=== PATIENT | male | born 1960 | race Caucasian/White ===

== ENCOUNTER 2016-11-16 12:53 | Emergency (ER) | payer MEDICARE ==
[2017-02-10] MEDS ORDERED: PERCOCET 10-321 EACH PO (17:38)
[2017-02-10] MEDS ORDERED: B-1100 MG PO (20:15)
[2017-02-10] MEDS ORDERED: FOLIC ACID 1 MG1 MG PO (20:15)
[2017-02-10] MEDS ORDERED: PEPCID20 MG PO (20:16)
== END 2016-11-16 13:40 | disposition home or self-care (01) ==
LOC: ER1 12:53
DX: S30.863A Insect bite (nonvenomous) of scrotum and testes, initial encounter (principal); F17.210 Nicotine dependence, cigarettes, uncomplicated; W57.XXXA Bitten or stung by nonvenomous insect and other nonvenomous arthropods, initial encounter
CPT/HCPCS: 99281

== ENCOUNTER → 2020-12-01 | Outpatient (CLI) | payer MEDICARE ==
[~2020-12-01] MED LIST: B-1100 MG PO; FOLIC ACID 1 MG1 MG PO; PEPCID20 MG PO; PERCOCET 10-321 EACH PO
== END ==
LOC: US 14:30
DX: C18.2 Malignant neoplasm of ascending colon (principal)
CPT/HCPCS: 93925; 93970